=== PATIENT | female | born 1990 | race Caucasian/White ===

== ENCOUNTER → 2023-02-14 09:37 | Outpatient (CLI) | payer OTHER, SELFPAY ==
--- NOTE | 2023-02-14 | DI.RAD.S_ITS ---
PROCEDURE: XR ELBOW RT MIN 3V INDICATIONS: Medial epicondylitis, right elbow TECHNIQUE: 3 views of the elbow were acquired. COMPARISON: None. FINDINGS: Bones: No fractures or dislocations. No suspicious bony lesions. Soft tissues: Minimal to mild elbow joint effusion. No suspicious soft tissue calcifications. IMPRESSION: Minimal to mild No visualized acute fracture or dislocation. However, if clinical concern and/or pain persist, short interval imaging followup in 7-10 days is recommended, as occult injury cannot be definitively excluded. Dictated by: Mihaela Real M.D. on 02/14/2023 at 17:15 Approved by: Mihaela Real M.D. on 02/14/2023 at 17:16
== END ==
PROVIDERS: PCP Registered Nurse; Referring Provider Registered Nurse; Visit Provider Registered Nurse
DX: M77.01 Medial epicondylitis, right elbow (principal)
CPT/HCPCS: 73080